=== PATIENT | male | born 1965 | race Asian ===

== ENCOUNTER 2019-09-03 06:44 | Inpatient (IN) | payer MEDICAID ==
[~2019-09-03] VITALS: Ht 162.6 cm; Wt 54.4 kg
[2019-09-03 06:48] VITALS: Ht 162.6 cm; Wt 54.4 kg
--- NOTE | 2019-09-03 06:57 | NUR ---
PT BROUGHT TO ED BY [facility] WITH C/O GENERALIZED BILATERAL LEG WEAKNESS X3 DAYS. PER MEDICS, UPON COMING HOME FROM WORK THIS AM PT WAS UNABLE TO WALK, PT FELL ONTO THE GRASS AND CRAWLED TO THE DOOR AND THEN ACTIVATED 911. PT REPORTS THAT HE HAS BEEN FEELING BILATERAL LEG PAIN AND WEAKNESS X3 DAYS THAT HAS BECOME PROGRESSIVELY WORSE. PT DENIES CHEST PAIN OR SOB. PT STATES TO LOW BACK PAIN WELL. PT PLACED ON FULL CM, AOX4, RESP EVEN AND UNLABORED, NO ACUTE DISTRESS NOTED. PT RATES PAIN AT 8/10 AT THIS TIME.
--- NOTE | 2019-09-03 07:06 | NUR ---
REPORT RECEIVED FROM MONIKA BOWERS RN I WILL BE RESUMING CARE OF PT AT THIS TIME
--- NOTE | 2019-09-03 07:06 | NUR ---
REPORT RECEIVED FROM MONIKA BOWERS RN I WILL BE RESUMING CARE OF PT AT THIS TIME
--- NOTE | 2019-09-03 07:17 | NUR ---
UPON ENTERING RM PT ON HIS PHONE, RESPS E/U, SINUS TACYCARDIA ON CM, WARM BLANKET PROVIDED PER PT REQUST AND COMFORT
[2019-09-03 07:29] LABS: BASOPHIL % 0.4 % (0-2); PLATELET COUNT 268 x10^3mcL (130-400); RED CELL DISTRIBUTION WIDTH 12.4 % (11.5-14.5)
[2019-09-03 07:47] LABS: ALBUMIN 3.4 g/dL (3.4-5.0); ALKALINE PHOSPHATASE 195 U/L (46-116); ALT/SGPT 33 U/L (16-63); AST/SGOT 17 U/L (15-37); BILIRUBIN TOTAL 0.6 mg/dL (0.20-1.00); CALCIUM 8.8 mg/dL (8.5-10.1); CARBON DIOXIDE 28.7 mmol/L (21-32); CHLORIDE SERUM 103 mmol/L (98-107); CREATININE SERUM 0.7 mg/dL (0.7-1.3); GFR1 > 60 mL/min; GLUCOSE SERUM 139 mg/dL (74-106); SODIUM SERUM 141 mmol/L (136-145); TOTAL PROTEIN, SERUM 7.5 g/dL (6.4-8.2)
[2019-09-03 07:57] LABS: POTASSIUM SERUM 2.7 mmol/L (3.5-5.1)
--- NOTE | 2019-09-03 08:21 | NUR ---
PT ON HIS PHONE, RESPS E/U, NO FACIAL GRIMACING NOTED, POTASSIUM INFUSING PER EMAR AND MD ORDER, CALL LIGHT WITHIN REACH
[2019-09-03 08:26] LABS: microscopic required? YES; urine erythrocyte TRACE (NEGATIVE)
--- NOTE | 2019-09-03 09:50 | NUR ---
PT ASLEEP BUT AROUSABLE, RESPS E/U, CALL LIGHT WITHIN REACH
--- NOTE | 2019-09-03 10:55 | NUR ---
PT ASLEEP BUT AROUSABLE, RESPS E/U, CALL LIGHT WITHIN REACH
--- NOTE | 2019-09-03 11:30 | NUR ---
PT ASLEEP BUT AROUSABLE IN POSITION OF COMFORT, RESPS E/U, WILL CONTINUE TO MONITOR
--- NOTE | 2019-09-03 12:09 | NUR ---
REPORT GIVEN TO KUSHAL MCKAY WHO IS RESUMING CARE OF PT AT THIS TIME
--- NOTE | 2019-09-03 13:07 | NUR ---
PT JUST LEFT THE FLOOR TO GO UPSTAIRS VIA BESS A/AX4 WITH SIDERAILS UP FOR SAFETY
--- NOTE | 2019-09-03 13:10 | NUR ---
RECEIVED PT VIA [employer] FROM E/D, ACCOMPANIED BY RN AND TRANSPORTER. PT A/A/O X 4, CALM, COOPERATIVE. AMBULATORY, WALKED FROM GURNEY TO BED W/ SLOW, STEADY GAIT; FELL 08/28/19; C/O NINOSKA THIGH AND BUTTOCKS INT CRAMPING PAIN 05/07; FALL RISK PROTOCOL IN PLACE. ON TELE # 26, HR 99, NSR, DENIES CHEST PAIN OR DISCOMFORT AT THIS TIME. SCD BY BEDSIDE. NO ACUTE RESPIRATORY DISTRESS NOTED. IV SITE RW 20G, CDI. ORIENTED PT TO ROOM, BED CONTROLS, CALL LIGHT SYSTEM. SIDE RAILS UP X 2, BED IN LOW POSITION. WILL ENDORSE TO KUSHAL MCKAY.
--- NOTE | 2019-09-03 13:13 | NUR ---
PT TRANSFERRED VIA GURNEY TO TELE UNIT BY MYSELF, AND EMT WILLIAM. PT VERBALIZED UNDERSTANDING OF CONTINUATION OF PLAN OF CARE. PT IS AWAKE, AAOX4, RESP E/U, NAD NOTED.
[2019-09-03 13:57] VITALS: BP 127/94
--- NOTE | 2019-09-03 14:39 | NUR ---
PATIENT WAS SLEEPING; AROUSABLE. CALM AND CO-OP TO CARES. ATIVAN HOLD. DR TOSCANO NOTIFIED.
[2019-09-03 17:11] VITALS: BP 132/76
--- NOTE | 2019-09-03 17:17 | NUR ---
PATEINT C/O K- RIDER 50CC/HR PAINFUL, REDUSED TO 30CC/HR. PATIENT C/O IV SITE PAIN. REDUSED K RIDER RATE TO 10CC/HR. PATIENT REFUSED 2ND K RIDER. DR. BERNARDO NOTIFIED. NEW ORDER OF KCL 40 MEQ PO GIVEN.
[2019-09-03 18:28] LABS: AMPHETAMINE QUAL UR NONE DETECTED (See below)
--- NOTE | 2019-09-03 18:36 | NUR ---
PATIENT VOID A LARGE AMOUNT URINE. SRP EVERY HOURS. IVF OF NS 125CC/HR. WITH K-RIDER. ENDORSED CARE TO NOC NRUSE.
--- NOTE | 2019-09-03 19:20 | NUR ---
RECEIVED PT SITTING IN BED. HE IS ALERT,ORIENTED X4. NO SOB ON ROOM AIR. NO C/O ABDL DISCOMFORT. W/ IV POTASSIUM INFUSING VIA RT WRIST. CALL LIGHT W/IN REACH.
[2019-09-03 21:20] VITALS: BP 119/77
--- NOTE | 2019-09-04 | NUR ---
PT APPEARS TO BE SLEEPING COMFORTABLY. NO S/S OF DISTRESS.
--- NOTE | 2019-09-04 05:21 | NUR ---
PT HAD A RESTFUL NIGHT. HE HAD NO C/O PAIN. NO EPISODE OF SOB. HE AMBULATES TO THE RESTROOM W/ STEADY GAIT. IVF NS INFUSING WELL AT 125 CC/HR VIA RT WRIST.
[2019-09-04 05:27] VITALS: BP 143/70
[2019-09-04 06:42] LABS: BASOPHIL % 0.3 % (0-2); PLATELET COUNT 236 x10^3mcL (130-400); RED CELL DISTRIBUTION WIDTH 13.2 % (11.5-14.5)
[2019-09-04 06:48] LABS: CARBON DIOXIDE 25.2 mmol/L (21-32); CHLORIDE SERUM 107 mmol/L (98-107); CREATININE SERUM 0.7 mg/dL (0.7-1.3); GFR1 > 60 mL/min; GLUCOSE SERUM 128 mg/dL (74-106); MAGNESIUM 1.7 mg/dL (1.8-2.4); PHOSPHOROUS 4.6 mg/dL (2.5-4.9); POTASSIUM SERUM 4.4 mmol/L (3.5-5.1); SODIUM SERUM 141 mmol/L (136-145)
--- NOTE | 2019-09-04 07:44 | NUR ---
A/A/OX4; CLEAR SPEAKING. TELE#26; SR; HR = 95. BREATHING SOUND CLEAR [place]OS[place]. AMBULATED ON STEADY GAIT. DENIED WEAKNESS. IVF OF NS 125CC/HR. IV SITE TO R WRIST CLEAN. VOID FREELY VIA BRP. RANDOM BLOOD SUGAR CHECK 145. CALL LIGHT IN REACH.
[2019-09-04 09:13] VITALS: BP 129/70
[2019-09-04 12:58] VITALS: BP 143/82
[2019-09-04] MEDS ORDERED: GLUCOPHAGE XR500 MG PO (13:07)
[2019-09-04 13:14] VITALS: BP 143/82
--- NOTE | 2019-09-04 14:10 | NUR ---
Discount pharmacy card and list to low cost medical clinics given to patient by Camilla Gomez.
--- NOTE | 2019-09-04 14:48 | NUR ---
TOLERATED CCHO DIET LUNCH. HR = 90'S. VOID FREQUENTLY. DENIED PAIN AND DISCOMFORT. D/C TO HOME PER ORDER. INSTRUTION GIVEN. IV D/C'D. OVER NEEDLE CATH INTACT. CONDITION STABLE. WAITING FOR FRIEND COME TO MAILING CLERK.
--- NOTE | 2019-09-05 15:14 | NUR ---
ECHO NOT DONE-DISCHARGED
== END 2019-09-04 15:05 | disposition home or self-care (01) | DRG 425 ==
LOC: ED 06:44 → DU 10:01
PROVIDERS: Emergency Medicine; ADMIT Internal Medicine
DX: E87.6 Hypokalemia (principal); F10.239 Alcohol dependence with withdrawal, unspecified; R73.9 Hyperglycemia, unspecified; T51.0X1A Toxic effect of ethanol, accidental (unintentional), initial encounter; Y90.0 Blood alcohol level of less than 20 mg/100 ml; F17.210 Nicotine dependence, cigarettes, uncomplicated; Z68.20 Body mass index [BMI] 20.0-20.9, adult
CPT/HCPCS: 82962; 90658; 90732; G0378; G0480; J3480; J7030; J7040; Q0092